=== PATIENT | female | born 1945 | race Caucasian/White ===

== ENCOUNTER → 2020-12-06 | Outpatient (CLI) | payer MEDICARE | END | disposition home or self-care (01) | LOC: LABWHC1 09:26 | PROVIDERS: ATTEND Orthopaedic Surgery | DX: M25.561 Pain in right knee (principal); T84.84XA Pain due to internal orthopedic prosthetic devices, implants and grafts, initial encounter; T84.53XA Infection and inflammatory reaction due to internal right knee prosthesis, initial encounter | CPT/HCPCS: 36415; 85652; 86140 ==

== ENCOUNTER 2024-01-23 11:29 | Inpatient (IN) | payer MEDICARE ==
[2024-01-23 12:11] LABS: Basophils % (A) 0 %; Eosinophils # (A) 0.1 k/uL (0-0.7); Eosinophils % (A) 1 %; HCT 41.7 % (34.0-46.0); HGB 13.3 gm/dL (11.4-16.0); Hypochromasia Slight; Lymphocytes # (A) 1.2 k/uL (1.0-4.8); Lymphocytes % (A) 12 %; MCH 28.2 pg (25.0-35.0); MCHC 31.9 g/dL (31.0-37.0); MCV 88.4 fL (80.0-100.0); Mean Platelet Volume 7.4; Monocytes # (A) 0.1 k/uL (0-1.0); Monocytes % (A) 1 %; Neutrophils % (A) 86 %; Platelet Count 277 k/uL (150-450); RBC 4.71 m/uL (3.80-5.40); RDW 14.4 % (11.5-15.5); WBC 10.5 k/uL (3.8-10.6)
--- NOTE | 2024-01-23 12:24 | ED ---
Fall HPI - General Chief Complaint: Fall Stated Complaint: Fall Time Seen by Provider: 01/23/24 11:34 Source: patient, EMS, RN notes reviewed Mode of arrival: EMS Limitations: no limitations - History of Present Illness Initial Comments: This is a 78-year-old female who presents to the emergency department for a fall. Patient was at [facility] to get a steroid injection with Dr. Mcdaniel. She was given Versed to help her relax prior to the steroid injection. The procedure was finished and she went to get up. States that her right knee gave out on her and she fell, landing on her right side. Currently complaining of pain over the right hip. She has been unable to ambulate since she fell. Denies hitting her head or any loss of consciousness. Not taking any blood thinners. MD Complaint: fall - Related Data Home Medications Medication Instructions Recorded Confirmed Atorvastatin [Lipitor] 20 mg PO HS 01/23/24 01/23/24 Calcium Carbonate [Calcium] 600 mg PO DAILY 01/23/24 01/23/24 Fosinopril Sodium [Monopril] 20 mg PO DAILY 01/23/24 01/23/24 Insulin Glargine,Hum.rec.anlog 25 units SQ HS 01/23/24 01/23/24 [Lantus Solostar Pen] Triamterene-Hctz 37.5-25Mg 1 cap PO DAILY 01/23/24 01/23/24 [Dyazide 37.5-25 Capsule] Verapamil HCl [Calan Sr] 240 mg PO BID 01/23/24 01/23/24 Allergies Allergy/AdvReac Type Severity Reaction Status Date / Time No Known Allergies Allergy Verified 01/23/24 13:48 Review of Systems ROS Statement: Those systems with pertinent positive or pertinent negative responses have been documented in the HPI. ROS Other: All systems not noted in ROS Statement are negative. Past Medical History Past Medical History: Diabetes Mellitus, Hypertension History of Any Multi-Drug Resistant Organisms: None Reported Additional Past Surgical History / Comment(s): right knee replacement, hysterectomoy Past Psychological History: No Psychological Hx Reported Smoking Status: Never smoker Past Alcohol Use History: None Reported Past Drug Use History: None Reported General Exam Limitations: no limitations General appearance: alert, in no apparent distress Head exam: Present: atraumatic, normocephalic, normal inspection Respiratory exam: Present: normal lung sounds bilaterally. Absent: respiratory distress, wheezes, rales, rhonchi, stridor Cardiovascular Exam: Present: regular rate, normal rhythm, normal heart sounds. Absent: systolic murmur, diastolic murmur, rubs, gallop, clicks Extremities exam: Present: other (Tenderness to palpation over the right hip. Shortening and external rotation. Range of motion limited by pain. 2+ DP and PT pulses) Neurological exam: Present: alert, oriented X3, CN II-XII intact Psychiatric exam: Present: normal affect, normal mood Skin exam: Present: warm, dry, intact, normal color. Absent: rash Course Vital Signs 01/23/24 01/23/24 01/23/24 11:34 12:35 14:00 Temperature 98.5 F 99.4 F Pulse Rate 77 64 93 Respiratory 21 17 17 Rate Blood Pressure 136/73 148/71 164/88 O2 Sat by Pulse 95 95 94 L Oximetry 01/23/24 01/23/24 14:11 15:33 Temperature Pulse Rate 81 94 Respiratory 18 16 Rate Blood Pressure 164/88 146/72 O2 Sat by Pulse 96 92 L Oximetry Medical Decision Making - Medical Decision Making This is a 78 year old female who presents to the emergency department for right hip pain after a fall. Was pt. sent in by a medical professional or institution? @ -No Did you speak to anyone other than the patient for history? @ -No Did you review nursing and triage notes? @ -Yes, and I agree, it is accurate with regards to the patient's symptoms. Were old charts reviewed? @ -No Differential Diagnosis? @ -Differential Musculoskeletal: Muscular strain, contusion, ligament sprain, fracture, arthritis, septic arthritis, bursitis, cellulitis, muscle spasm, nerve compression, DVT, arterial occlusion, herpes zoster, electrolyte abnormality, tumor.... This is not meant to be in all inclusive list EKG interpreted by me (3pts min.)? @ -EKG interpreted by me demonstrating the following: Sinus rhythm. Ventricular rate 73 bpm, CT interval 142 ms, QRS duration 91 ms, QTc 421 ms. X-rays interpreted by me (1pt min.)? @ -X-ray of the right hip and AP pelvis obtained. My interpretation identifies an intertrochanteric fracture. Chest x-ray obtained, my interpretation identifies no localized consolidations or infiltrates. CT interpreted by me (1pt min.)? @ -Not obtained U/S interpreted by me (1pt. min.)? @ -Not obtained What testing was considered but not performed? (CT, X-rays, U/S, labs)? Why? @ -None What meds were considered but not given? Why? @ -None Did you discuss the management of the patient with other professionals? @ -Yes, Juli Hull PA-C, with [facility], who accepts the patient for admission. Did you reconcile home meds? @ -Yes Was smoking cessation discussed for >3mins.? @ -No Was critical care preformed (if so, how long)? @ -No Were there social determinants of health that impacted care today? How? (Homelessness, low income, unemployed, alcoholism, drug addiction, trans portation, low edu. Level, literacy, decrease access to med. care, fci, rehab)? @ -No Was there de-escalation of care discussed even if they declined? (Discuss DNR or withdrawal of care, Hospice)? @ -No What co-morbidities impacted this encounter? (DM, HTN, Smoking, COPD, CAD, Cancer, CVA, Hep., AIDS, mental health diagnosis, sleep apnea, morbid obesity)? @ -DM, HTN Was patient admitted / discharged? @ -Admitted. X-ray of the right hip and AP pelvis demonstrates a right intertrochanteric fracture with varus deformity. We subsequently proceeded with preoperative workup including an EKG, lab work, and chest x-ray. Lab work demonstrates decreased renal function and signs of dehydration. However, we have no prior renal function for comparison. Ann catheter was placed as well due to required immobilization. Patient admitted to orthopedics for right intertrochanteric fracture. Consult placed for medicine for medical management and surgical clearance. Patient kept NPO after midnight for possible intervention tomorrow. Case discussed with ED attending, Dr. Matthews. Undiagnosed new problem with uncertain prognosis? @ -None Drug Therapy requiring intensive monitoring for toxicity (Heparin, Nitro, Insulin, Cardizem)? @ -None Were any procedures done? @ -None Diagnosis/symptom? @ -Fall, right intertrochanteric fracture Acute, or Chronic, or Acute on Chronic? @ -Acute Uncomplicated (without systemic symptoms) or Complicated (systemic symptoms)? @ -Uncomplicated Side effects of treatment? @ -None Exacerbation, Progression, or Severe Exacerbation] @ -Not applicable Poses a threat to life or bodily function? @ -Yes, this is preventing the patient from being able to ambulate. - Lab Data Result diagrams: 01/23/24 12:00 01/23/24 12:00 Lab Results 01/23/24 01/23/24 01/23/24 Range/Units 12:00 12:00 12:00 WBC 10.5 (3.8-10.6) k/uL RBC 4.71 (3.80-5.40) m/uL Hgb 13.3 (11.4-16.0) gm/dL Hct 41.7 (34.0-46.0) % MCV 88.4 (80.0-100.0) fL MCH 28.2 (25.0-35.0) pg MCHC 31.9 (31.0-37.0) g/dL RDW 14.4 (11.5-15.5) % Plt Count 277 (150-450) k/uL MPV 7.4 Neutrophils % 86 % Lymphocytes % 12 % Monocytes % 1 % Eosinophils % 1 % Basophils % 0 % Neutrophils # 9.0 H (1.3-7.7) k/uL Lymphocytes # 1.2 (1.0-4.8) k/uL Monocytes # 0.1 (0-1.0) k/uL Eosinophils # 0.1 (0-0.7) k/uL Basophils # 0.0 (0-0.2) k/uL Hypochromasia Slight PT 10.3 (10.0-12.5) sec INR 0.9 (<1.2) APTT 22.8 (22.0-30.0) sec Sodium 137 (137-145) mmol/L Potassium 4.9 (3.5-5.1) mmol/L Chloride 103 (98-107) mmol/L Carbon Dioxide 27 (22-30) mmol/L Anion Gap 7 mmol/L BUN 21 H (7-17) mg/dL Creatinine 1.52 H (0.52-1.04) mg/dL Est GFR (CKD-EPI)AfAm 38 (>60 ml/min/1.73 sqM) Est GFR (CKD-EPI)NonAf 33 (>60 ml/min/1.73 sqM) Glucose 161 H (74-99) mg/dL POC Glucose (mg/dL) (70-110) mg/dL POC Glu Intake Manager ID Calcium 9.8 (8.4-10.2) mg/dL Total Bilirubin 0.7 (0.2-1.3) mg/dL AST 27 (14-36) U/L ALT 24 (4-34) U/L Alkaline Phosphatase 67 (38-126) U/L Total Protein 6.7 (6.3-8.2) g/dL Albumin 4.1 (3.5-5.0) g/dL 01/23/24 Range/Units 13:14 WBC (3.8-10.6) k/uL RBC (3.80-5.40) m/uL Hgb (11.4-16.0) gm/dL Hct (34.0-46.0) % MCV (80.0-100.0) fL MCH (25.0-35.0) pg MCHC (31.0-37.0) g/dL RDW (11.5-15.5) % Plt Count (150-450) k/uL MPV Neutrophils % % Lymphocytes % % Monocytes % % Eosinophils % % Basophils % % Neutrophils # (1.3-7.7) k/uL Lymphocytes # (1.0-4.8) k/uL Monocytes # (0-1.0) k/uL Eosinophils # (0-0.7) k/uL Basophils # (0-0.2) k/uL Hypochromasia PT (10.0-12.5) sec INR (<1.2) APTT (22.0-30.0) sec Sodium (137-145) mmol/L Potassium (3.5-5.1) mmol/L Chloride (98-107) mmol/L Carbon Dioxide (22-30) mmol/L Anion Gap mmol/L BUN (7-17) mg/dL Creatinine (0.52-1.04) mg/dL Est GFR (CKD-EPI)AfAm (>60 ml/min/1.73 sqM) Est GFR (CKD-EPI)NonAf (>60 ml/min/1.73 sqM) Glucose (74-99) mg/dL POC Glucose (mg/dL) 157 H (70-110) mg/dL POC Glu Intake Manager ID Jay Baig Calcium (8.4-10.2) mg/dL Total Bilirubin (0.2-1.3) mg/dL AST (14-36) U/L ALT (4-34) U/L Alkaline Phosphatase (38-126) U/L Total Protein (6.3-8.2) g/dL Albumin (3.5-5.0) g/dL - Radiology Data Radiology results: report reviewed, image reviewed Disposition Clinical Impression: Fall, Fracture, intertrochanteric, right femur Disposition: ADMITTED IP TO THIS HOSP
[2024-01-23 12:28] LABS: INR 0.9 (<1.2); Partial Thromboplastin Time 22.8 sec (22.0-30.0); Prothrombin Time 10.3 sec (10.0-12.5)
[2024-01-23 12:31] LABS: ALT 24 U/L (4-34); AST 27 U/L (14-36); African American GFR (CKD) 38 (>60 ml/min/1.73 sqM); Albumin 4.1 g/dL (3.5-5.0); Alkaline Phosphatase 67 U/L (38-126); Anion Gap 7 mmol/L; Blood Urea Nitrogen 21 mg/dL (7-17); Calcium 9.8 mg/dL (8.4-10.2); Carbon Dioxide 27 mmol/L (22-30); Chloride 103 mmol/L (98-107); Glucose 161 mg/dL (74-99); Non-African American GFR(CKD) 33 (>60 ml/min/1.73 sqM); Potassium 4.9 mmol/L (3.5-5.1); Sodium 137 mmol/L (137-145); Total Bilirubin 0.7 mg/dL (0.2-1.3); Total Protein 6.7 g/dL (6.3-8.2)
[2024-01-23] MEDS: SODIUM CHLORIDE 0.9% 1,000 ML IV STA (12:45)
[2024-01-23] MEDS: HYDROmorphone 0.5 MG/0.5 ML SYRINGE IVP STA (12:45)
[2024-01-23] MEDS: HYDROmorphone 1 MG/ML 1 ML SYRINGE IVP STA (13:10)
[2024-01-23 13:15] LABS: Glucose,Whole Blood 157 mg/dL (70-110)
--- NOTE | 2024-01-23 13:42 | XR ---
EXAMINATION TYPE: XR chest 1V DATE OF EXAM: 01/23/2024 1:13 PM CLINICAL INDICATION: Female, 78 years old with history of Fall; [facility] COMPARISON: None TECHNIQUE: XR chest 1V Frontal view of the chest. FINDINGS: Lungs/Pleura: There is no evidence of pleural effusion, focal consolidation, or pneumothorax. Pulmonary vascularity: Unremarkable. Heart/mediastinum: Cardiomediastinal silhouette is unremarkable. Musculoskeletal: No acute osseous pathology. IMPRESSION: No acute cardiopulmonary disease/process. [facility], , 01/23/2024 1:40 PM
--- NOTE | 2024-01-23 13:49 | XR ---
EXAMINATION TYPE: XR Hip RT and AP Pelvis DATE OF EXAM: 01/23/2024 1:13 PM CLINICAL INDICATION: Female, 78 years old with history of Fall; [facility] COMPARISON: None. TECHNIQUE: XR Hip RT and AP Pelvis; hip was examined in the frontal and lateral projections and a AP pelvis. FINDINGS/IMPRESSION: Proximal right femur fracture with varus deformity. [facility], , 01/23/2024 1:47 PM
[2024-01-23] MEDS ORDERED: ACETAMINOPHEN TAB 325 MG TAB PO PRN (14:48)
[2024-01-23] MEDS ORDERED: HYDROmorphone 0.5 MG/0.5 ML SYRINGE IVP PRN (14:48)
[2024-01-23] MEDS ORDERED: ONDANSETRON 4 MG/2 ML VIAL IVP PRN (14:48)
[2024-01-23] MEDS ORDERED: NALOXONE 0.4 MG/ML 1 ML VIAL IV PRN (14:48)
[2024-01-23] MEDS: HYDROmorphone 1 MG/ML 1 ML SYRINGE IVP PRN (16:25)
--- NOTE | 2024-01-23 17:10 | CT ---
EXAMINATION TYPE: CT hip RT wo con DATE OF EXAM: 01/23/2024 COMPARISON: Plain film 01/23/2024 HISTORY: Fractured right hip CT DLP: 634.7 mGycm Automated exposure control for dose reduction was used. Contrast: None Technique: Axial images 3 mm thick sections. Reconstructed images in the coronal and sagittal plane. FINDINGS: There is an intertrochanteric fracture of the right hip. Subtle nondisplaced avulsion of the lesser t rochanter is present. There is some rotation of the distal fracture fragment in relation to the proxi mal fracture fragment. Femoral head articulates with the acetabulum. Joint space is narrowed. IMPRESSION: 1. INTERTROCHANTERIC FRACTURE RIGHT HIP. [facility], Workstation: [facility], 01/23/2024 5:07 PM
[2024-01-23 20:52] LABS: Glucose,Whole Blood 283 mg/dL (70-110)
[2024-01-23] MEDS: ATORVASTATIN 20 MG TAB PO SCH (21:23)
[2024-01-23] MEDS: VERAPAMIL SR 240 MG TABLET.ER PO SCH (21:23)
[2024-01-23] MEDS: INSULIN DETEMIR (LEVEMIR) 100 UNIT/ML SYR SQ SCH (21:23)
[2024-01-24 06:05] LABS: Glucose,Whole Blood 229 mg/dL (70-110)
[2024-01-24] MEDS: TRIAMTERENE-HCTZ 37.5-25MG 1 EACH CAP PO SCH (07:56)
[2024-01-24] MEDS: PANTOPRAZOLE 40 MG/10 ML VIAL IV SCH (07:56)
[2024-01-24] MEDS: CALCIUM CARBONATE 500 MG CHEWABLE PO SCH (07:56)
[2024-01-24] MEDS: lisinopriL 20 MG TAB PO SCH (07:56)
--- NOTE | 2024-01-24 09:07 | P.HPOR ---
History of Present Illness H&P Date: 01/24/24 This is a 78-year-old female who is admitted for a right hip fracture. Patient states that she has had issues with her right leg giving out for quite a while and states that she normally uses a cane or furniture in her house to stabilize her as she walks. Patient states that she has been having issues with her back and received a steroid injection for this on 01/23/2024. Patient states that yesterday her right leg gave out and she fell. Patient denies any loss of consciousness or head injury. Patient states that she lives at home with her . Patient's past medical history significant for diabetes mellitus and hypertension. Patient reports a history of a right knee replacement. Patient denies any fever/chills, chest pain, shortness breath, abdominal pain, numbness or tingling. Review of Systems See HPI. Past Medical History Past Medical History: Diabetes Mellitus, Hypertension History of Any Multi-Drug Resistant Organisms: None Reported Additional Past Surgical History / Comment(s): right knee replacement, hysterectomoy Past Anesthesia/Blood Transfusion Reactions: No Reported Reaction Past Psychological History: No Psychological Hx Reported Smoking Status: Never smoker Past Alcohol Use History: None Reported Past Drug Use History: None Reported Medications and Allergies Home Medications Medication Instructions Recorded Confirmed Type Atorvastatin [Lipitor] 20 mg PO HS 01/23/24 01/23/24 History Calcium Carbonate [Calcium] 600 mg PO DAILY 01/23/24 01/23/24 History Fosinopril Sodium [Monopril] 20 mg PO DAILY 01/23/24 01/23/24 History Insulin Glargine,Hum.rec.anlog 25 units SQ HS 01/23/24 01/23/24 History [Lantus Solostar Pen] Triamterene-Hctz 37.5-25Mg 1 cap PO DAILY 01/23/24 01/23/24 History [Dyazide 37.5-25 Capsule] Verapamil HCl [Calan Sr] 240 mg PO BID 01/23/24 01/23/24 History Allergies Allergy/AdvReac Type Severity Reaction Status Date / Time No Known Allergies Allergy Verified 01/23/24 13:48 Physical Examination On exam patient is resting comfortably in bed in no acute distress. Patient is alert and oriented 3. Right lower extremity: Shortened and externally rotated. Skin is intact. There is mild swelling present. The right lower extremity is warm and well-perfused. Calf is soft and nontender to palpation. Sensation intact. Patient has full range of motion of the right foot and ankle. Neurovascular status and circulatory status are intact. There is a small abrasion to the right forearm. Otherwise exams of bilateral upper extremities and left lower extremity are within normal limits. Head is normocephalic and atraumatic. Results X-rays of the right hip and pelvis reveal an intertrochanteric fracture of the right femur. A CT report of the right hip shows: 1. Intertrochanteric fracture right hip. - Labs Labs: Abnormal Lab Results - Last 24 Hours (Table) 01/23/24 01/23/24 01/23/24 Range/Units 12:00 12:00 13:14 Neutrophils # 9.0 H (1.3-7.7) k/uL BUN 21 H (7-17) mg/dL Creatinine 1.52 H (0.52-1.04) mg/dL Glucose 161 H (74-99) mg/dL POC Glucose (mg/dL) 157 H (70-110) mg/dL 01/23/24 01/24/24 Range/Units 20:48 06:04 Neutrophils # (1.3-7.7) k/uL BUN (7-17) mg/dL Creatinine (0.52-1.04) mg/dL Glucose (74-99) mg/dL POC Glucose (mg/dL) 283 H 229 H (70-110) mg/dL H & H 01/23/24 Range/Units 12:00 Hgb 13.3 (11.4-16.0) gm/dL Hct 41.7 (34.0-46.0) % Coagulation 01/23/24 Range/Units 12:00 INR 0.9 (<1.2) Result Diagrams: 01/23/24 12:00 01/23/24 12:00 Assessment and Plan (1) Fall Current Visit: Yes Status: Acute Code(s): W19.XXXA - UNSPECIFIED FALL, INITIAL ENCOUNTER SNOMED Code(s): 2447111 (2) Fracture, intertrochanteric, right femur Current Visit: Yes Status: Acute Code(s): S72.141A - DISPLACED INTERTROCHANTERIC FRACTURE OF RIGHT FEMUR, INIT SNOMED Code(s): 827558486 Plan: 1. NPO after midnight. 2. Continue bedrest and pain control. 3. Planning for closed reduction and intramedullary nailing of the right hip on 01/25/[address] Juventino Estrella pending medical clearance and patient consent.
[2024-01-24] MEDS ORDERED: LIDOCAINE 1% (10MG/ML) FOR IV START INTRADERMA PRN (09:25)
--- NOTE | 2024-01-24 14:32 | P.CONS ---
History of Present Illness - Reason for Consult Consult date: 01/24/24 Medical management - History of Present Illness History of present illness; patient is a 78-year-old lady with past medical history significant for hypertension, diabetes mellitus who presented to the ER because of a fall. Patient has been having issues with her right hip for a while. Patient has been having back pain and for which she received a steroid injection yesterday. Patient stated that her right leg gave out and she fell on her right side. There was no complaint of loss of consciousness. Denied any trauma to the head. Patient did not complain of any lightheadedness or dizziness prior to the fall. Because of this patient was brought to the ER Initial lab work done in the ER showed WBC 10.5, hemoglobin 13.3, platelet count 277, sodium 137 potassium 4.9, BUN 21, creatinine 1.52, glucose 167, calcium 9.8, bilirubin 0.7, AST 27, ALT 24 EKG done in the ER showed heart rate of 73, no ST segment elevation or depression seen, no T-wave inversions seen. Chest x-ray done in the ER showed no acute cardiopulmonary process X-ray right hip and pelvis showed proximal right femur fracture with varus deformity CT hip done showed intertrochanteric fracture right hip Patient admitted to internal medicine service REVIEW OF SYSTEMS: CONSTITUTIONAL: No fever, no malaise, no fatigue. HEENT: No recent visual problems or hearing problems. Denied any sore throat. CARDIOVASCULAR: No chest pain, orthopnea, PND, no palpitations, no syncope. PULMONARY: No shortness of breath, no cough, no hemoptysis. GASTROINTESTINAL: No diarrhea, no nausea, no vomiting, no abdominal pain. NEUROLOGICAL: No headaches, no weakness, no numbness. HEMATOLOGICAL: Denies any bleeding or petechiae. GENITOURINARY: Denies any burning micturition, frequency, or urgency. MUSCULOSKELETAL/RHEUMATOLOGICAL: As mentioned above ENDOCRINE: Denies any polyuria or polydipsia. The rest of the 14-point review of systems is negative. PHYSICAL EXAMINATION: GENERAL: The patient is alert and oriented x3, not in any acute distress. Well developed, well nourished. HEENT: Pupils are round and equally reacting to light. EOMI. No scleral icterus. No conjunctival pallor. Normocephalic, atraumatic. No pharyngeal erythema. No thyromegaly. CARDIOVASCULAR: S1 and S2 present. No murmurs, rubs, or gallops. PULMONARY: Chest is clear to auscultation, no wheezing or crackles. ABDOMEN: Soft, nontender, nondistended, normoactive bowel sounds. No palpable organomegaly. MUSCULOSKELETAL: No joint swelling or deformity. EXTREMITIES: No cyanosis, clubbing, or pedal edema. NEUROLOGICAL: Gross neurological examination did not reveal any focal deficits. SKIN: No rashes. Assessment and plan Fall Right hip fracture Hypertension Diabetes mellitus Monitor vital signs Monitor CBC Monitor CMP Continue pain management per orthopedics Continue DVT prophylaxis per orthopedics Resume home meds PT and OT consulted Patient is medically cleared for orthopedic surgical intervention with moderate risk of postoperative complication Labs and medication were reviewed.. Continue same treatment. Continue with symptomatic treatment. Resume home medication. Monitor labs and vitals. DVT and GI prophylaxis. Further recommendations as per clinical course of the patient Dictation was produced using [employer] dictation software. please excuse any grammatical, word or spelling errors. Past Medical History Past Medical History: Diabetes Mellitus, Hypertension History of Any Multi-Drug Resistant Organisms: None Reported Additional Past Surgical History / Comment(s): right knee replacement, hysterectomoy Past Anesthesia/Blood Transfusion Reactions: No Reported Reaction Past Psychological History: No Psychological Hx Reported Smoking Status: Never smoker Past Alcohol Use History: None Reported Past Drug Use History: None Reported Medications and Allergies Home Medications Medication Instructions Recorded Confirmed Type Atorvastatin [Lipitor] 20 mg PO HS 01/23/24 01/23/24 History Calcium Carbonate [Calcium] 600 mg PO DAILY 01/23/24 01/23/24 History Fosinopril Sodium [Monopril] 20 mg PO DAILY 01/23/24 01/23/24 History Insulin Glargine,Hum.rec.anlog 25 units SQ HS 01/23/24 01/23/24 History [Lantus Solostar Pen] Triamterene-Hctz 37.5-25Mg 1 cap PO DAILY 01/23/24 01/23/24 History [Dyazide 37.5-25 Capsule] Verapamil HCl [Calan Sr] 240 mg PO BID 01/23/24 01/23/24 History Allergies Allergy/AdvReac Type Severity Reaction Status Date / Time No Known Allergies Allergy Verified 01/23/24 13:48 Physical Exam Vitals: Vital Signs Temp Pulse Pulse Resp BP BP Pulse Ox 01/24/24 01:42 98.6 F 94 17 131/72 93 L 01/23/24 20:50 98.7 F 100 17 157/78 92 L 01/23/24 19:39 98.3 F 100 17 148/65 94 L 01/23/24 17:00 79 16 140/90 94 L 01/23/24 15:33 94 16 146/72 92 L 01/23/24 14:11 81 18 164/88 96 01/23/24 14:00 93 17 164/88 94 L 01/23/24 12:35 99.4 F 64 17 148/71 95 01/23/24 11:34 98.5 F 77 21 136/73 95 Intake and Output 01/23/24 01/24/24 01/24/24 22:59 06:59 14:59 Output Total 925 Balance -925 Output: Urine 925 Other: Voiding Method Indwelling Catheter Weight 86.183 kg Results CBC & Chem 7: 01/23/24 12:00 01/23/24 12:00 Labs: Abnormal Lab Results - Last 24 Hours (Table) 01/23/24 01/23/24 01/23/24 Range/Units 12:00 12:00 13:14 Neutrophils # 9.0 H (1.3-7.7) k/uL BUN 21 H (7-17) mg/dL Creatinine 1.52 H (0.52-1.04) mg/dL Glucose 161 H (74-99) mg/dL POC Glucose (mg/dL) 157 H (70-110) mg/dL 01/23/24 01/24/24 Range/Units 20:48 06:04 Neutrophils # (1.3-7.7) k/uL BUN (7-17) mg/dL Creatinine (0.52-1.04) mg/dL Glucose (74-99) mg/dL POC Glucose (mg/dL) 283 H 229 H (70-110) mg/dL
[2024-01-24 17:01] LABS: Glucose,Whole Blood 197 mg/dL (70-110)
[2024-01-24] MEDS: LACTATED RINGERS 1,000 ML IV SCH (19:25)
[2024-01-24 21:54] LABS: Glucose,Whole Blood 170 mg/dL (70-110)
[2024-01-25 05:56] LABS: Glucose,Whole Blood 144 mg/dL (70-110)
[2024-01-25] MEDS ORDERED: ONDANSETRON 4 MG/2 ML VIAL IVP PRN (07:00)
[2024-01-25] MEDS ORDERED: PHENYLEPHRINE 10 MG/ML VIAL ONE (08:03)
[2024-01-25] MEDS ORDERED: fentaNYL (PF) 50 MCG/ML 2 ML AMP ONE (08:03)
[2024-01-25] MEDS ORDERED: TRANEXAMIC 1,000 MG/100ML-NACL PREMIX BAG ONE (08:03)
[2024-01-25] MEDS ORDERED: ROCURONIUM 10 MG/ML (5 ML VIAL) IV ONE (08:03)
[2024-01-25] MEDS ORDERED: HYDROmorphone (PF) 1 MG/ML ONE (08:03)
[2024-01-25] MEDS ORDERED: GLYCOPYRROLATE 0.2 MG/ML 2 ML VIAL ONE (08:03)
[2024-01-25] MEDS ORDERED: NEOSTIGMINE 1 MG/ML 10 ML VIAL ONE (08:03)
[2024-01-25] MEDS ORDERED: DEXAMETHASONE SOD PHOSPHATE 4 MG/ML 1 ML VIAL ONE (08:03)
[2024-01-25] MEDS ORDERED: ONDANSETRON 4 MG/2 ML VIAL ONE (08:03)
[2024-01-25] MEDS ORDERED: SUCCINYLCHOLINE CHLORIDE 200 MG/10 ML VIAL IV ONE (08:03)
[2024-01-25] MEDS ORDERED: LIDOCAINE 1% INJ 10MG/ML (20 ML MDV) ONE (08:03)
[2024-01-25] MEDS ORDERED: PROPOFOL 10 MG/ML 20 ML VIAL IV ONE (08:03)
[2024-01-25] MEDS: IV FLUID CONTINUATION 1,000 ML IV ONE (08:08)
[2024-01-25] MEDS: SODIUM CHLORIDE 0.9% 100 ML with ceFAZolin 2,000 MG IV ONE (08:08)
[2024-01-25] MEDS: ceFAZolin 1,000 MG in SODIUM CHLORIDE 0.9% 1,000 ML IRRIGATION ONE (08:08)
--- NOTE | 2024-01-25 09:08 | P.OP ---
Date of Procedure: 01/25/24 Preoperative Diagnosis: Displaced intertrochanteric fracture right hip Postoperative Diagnosis: Displaced intertrochanteric fracture right hip Procedure(s) Performed: Close reduction and intramedullary nailing right hip Implants: [employer] TriGen Intertan nail 125, 11.5 mm x 18 cm. [employer] Intertan integrated-interlocking lag screw, 100 mm lag screw, 95 mm compression screw. [employer] L-P screw, 5.0 mm x 37.5 mm. Anesthesia: GETA Surgeon: Juventino Estrella Sql Server Architect #1: Juli Hull Estimated Blood Loss (ml): 150 Pathology: none sent Condition: stable Disposition: PACU Indications for Procedure: This is a 78-year-old female sustained a ground-level fall on Friday. X-rays demonstrate a displaced intertrochanteric fracture of her right hip. After discussing the surgical and nonsurgical treatment options with her at length, I recommended a close reduction and intramedullary nailing of the right hip. Informed consent was obtained. Operative Findings: The operative findings are consistent with a displaced intertrochanteric fracture of the right hip Description of Procedure: The patient was seen in the preoperative area, consent was reviewed, and the operative site was marked with a skin marker. The surgical procedure was discussed at length with both the patient and the family at the bedside. All questions were answered to the best of my ability. The patient was brought to the operating room and placed on the fracture table. Anesthesia was administered by the anesthesia department. 2 g of Ancef were administered intravenously. The patient was placed supine on the fracture table with the fractured extremity in traction boot. The other extremity was placed in a well leg dejesus and the bony prominences were well padded. A universal timeout was then performed which confirmed the patient's name, surgical site, ALLERGIES, and consent. Fracture reduction was performed with a traction and abduction maneuver which was confirmed with fluoroscopy, both AP and lateral views.. After reduction was performed, the extremity was then prepped with ChloraPrep solution and draped in the usual sterile fashion. Utilizing fluoroscopy to identify the tip of the greater trochanter, a 3 cm longitudinal incision was made just proximal to the greater trochanter. Incision was carried through the fascia to the tip of the greater trochanter. Utilizing a curved awl, the entry point was created at the tip of the greater trochanter and centralized in the AP and lateral planes. These locations were confirmed by fluoroscopy. A guidewire was then inserted down the medullary canal. Sequentially reaming of the femur was performed to 13 mm distally and 17 mm proximally with the channel reamer. After reaming, appropriate size nail was inserted over the guidewire. The nail was inserted to the appropriate depth and the guidewire was removed. Placement of the ira was confirmed with both AP and lateral fluoroscopic views. The lag screw drill sleeve was placed in the jig and a small skin incision was made on the lateral aspect of the leg and the lag screw drill sleeve was locked into the guide. The 3.2 mm guide pin sleeve was inserted through the lag screw drill sleeve down to bone. A 3.2 mm distally threaded guidewire was inserted through the guide pin sleeve. The guidewire was inserted in the desired position in the femoral head, both anterior and posterior. The lag screw length cage was inserted over the guidepin to the back of the lag screw drill sleeve. Lag screw length was then measured from the cage. Next, the 7.0 mm compression screw starter drill was inserted in the lag screw drill sleeve beneath the guidepin. The compression screw starter drill was advanced under power until it abutted the back and of the lag screw drill sleeve. The 7.0 mm compression screw drill was inserted through the lag screw drill sleeve into the hole created by the compression screw starter drill. This was advanced under fluoroscopy to a depth 5 mm less and the measurement taken for the guidepin. The compression screw drill was removed and the antirotation bar was inserted into the same hole. The 3.2 mm guide pin sleeve was then removed from the drill guide. The lag screw drill was then inserted to a depth that was measured by the lag screw gauge. This was done under fluoroscopy. The lag screw was inserted over the guidewire to the appropriate depth using fluoroscopy. Traction was then released. The antirotation bar was then removed and the compression screw was advanced through the lag screw drill sleeve beneath the lag screw. This was advanced to the appropriate compression was achieved. The proximal drill guide was then removed and the distal drill guide was then inserted in the jig. Skin incision was made down to bone and the distal drill guide was then placed. Distal hole was then drilled with a 4.0 mm drill and measured to the appropriate depth. Distal screw was then placed. The entire assembly was then removed and final fluoroscopic x-rays were obtained. The wounds were then irrigated copiously with saline solution. Fascia was closed with 0-Vicryl. Subcutaneous tissues were closed with 2-0 Vicryl and the skin was closed with rei. Sterile dressings were applied. The patient was transported to the recovery room in stable condition. The speech and language assistant WHITNEY Sánchez was required due the complexity of surgery the need for skilled hand frame surgical elastic knitter for positioning draping retraction and fracture reduction.
--- NOTE | 2024-01-25 09:27 | XR ---
Fluoroscopy INDICATION: Pain FINDINGS: Fluoroscopy time: 31 seconds. Total dose area product (DAP) in uGy*m?, mGy*cm? (or similar): 1.811 Images obtained: 3. Right hip pin placement for intertrochanteric fracture repair. IMPRESSION: 1. Documentation of fluoroscopy. [facility] Workstation: [facility], 01/25/2024 9:24 AM
[2024-01-25] MEDS ORDERED: NALOXONE 0.4 MG/ML 1 ML VIAL IV PRN (09:29)
[2024-01-25] MEDS ORDERED: HYDROmorphone 0.5 MG/0.5 ML SYRINGE IVP PRN ×2 (09:29)
[2024-01-25] MEDS ORDERED: MAGNESIUM HYDROXIDE 2,400 MG/30 ML CUP PO PRN (09:29)
--- NOTE | 2024-01-25 09:29 | FL ---
Fluoroscopy INDICATION: Pain FINDINGS: Fluoroscopy time: 31 seconds. Total dose area product (DAP) in uGy*m?, mGy*cm? (or similar): 1.811 Images obtained: 0. IMPRESSION: 1. Documentation of fluoroscopy. [facility], Workstation: [facility], 01/25/2024 9:26 AM
[2024-01-25] MEDS: HYDROmorphone 0.5 MG/0.5 ML SYRINGE IVP PRN (09:43)
[2024-01-25 09:45] LABS: Glucose,Whole Blood 112 mg/dL (70-110)
[2024-01-25] MEDS: ONDANSETRON 4 MG/2 ML VIAL IVP ONE (10:29)
[2024-01-25] MEDS: DEXAMETHASONE SOD PHOSPHATE 4 MG/ML 1 ML VIAL IV ONE (10:29)
--- NOTE | 2024-01-25 11:12 | XR ---
EXAMINATION TYPE: XR Hip Limited RT DATE OF EXAM: 01/25/2024 COMPARISON: None HISTORY: Post hip surgery TECHNIQUE: AP right hip FINDINGS: Hip pin is present in the femoral head. Intertrochanteric fracture fixation is informed. Me dullary ira is present. Postsurgical soft tissue changes are present. No new fractures are evident. IMPRESSION: 1. No new fracture post right open reduction internal fixation. [facility], Workstation: [facility], 01/25/2024 11:09 AM
[2024-01-25 11:47] LABS: Glucose,Whole Blood 166 mg/dL (70-110)
--- NOTE | 2024-01-25 14:02 | P.PN ---
Subjective Progress Note Date: 01/25/24 patient is a 78-year-old lady with past medical history significant for hypertension, diabetes mellitus who presented to the ER because of a fall. Patient has been having issues with her right hip for a while. Patient has been having back pain and for which she received a steroid injection yesterday. Patient stated that her right leg gave out and she fell on her right side. There was no complaint of loss of consciousness. Denied any trauma to the head. Patient did not complain of any lightheadedness or dizziness prior to the fall. Because of this patient was brought to the ER Initial lab work done in the ER showed WBC 10.5, hemoglobin 13.3, platelet count 277, sodium 137 potassium 4.9, BUN 21, creatinine 1.52, glucose 167, calcium 9.8, bilirubin 0.7, AST 27, ALT 24 EKG done in the ER showed heart rate of 73, no ST segment elevation or depression seen, no T-wave inversions seen. Chest x-ray done in the ER showed no acute cardiopulmonary process X-ray right hip and pelvis showed proximal right femur fracture with varus deformity CT hip done showed intertrochanteric fracture right hip Patient admitted to internal medicine service 01/24. Patient seen and examined. N.p.o. going for surgery today REVIEW OF SYSTEMS: CONSTITUTIONAL: No fever, no malaise,. CARDIOVASCULAR: No chest pain, no palpitations, no syncope. PULMONARY: No shortness of breath, no cough, GASTROINTESTINAL: No diarrhea, no nausea, no vomiting, no abdominal pain. NEUROLOGICAL: No headaches, no weakness, PHYSICAL EXAMINATION: GENERAL: The patient is alert and oriented x3, not in any acute distress. Well developed, well nourished. HEENT: Pupils are round and equally reacting to light. EOMI. No scleral icterus. No conjunctival pallor. Normocephalic, atraumatic. No pharyngeal erythema. No thyromegaly. CARDIOVASCULAR: S1 and S2 present. No murmurs, rubs, or gallops. PULMONARY: Chest is clear to auscultation, no wheezing or crackles. ABDOMEN: Soft, nontender, nondistended, normoactive bowel sounds. No palpable organomegaly. MUSCULOSKELETAL: No joint swelling or deformity. EXTREMITIES: No cyanosis, clubbing, or pedal edema. NEUROLOGICAL: Gross neurological examination did not reveal any focal deficits. SKIN: No rashes. Assessment and plan Fall Right hip fracture Hypertension Diabetes mellitus Monitor vital signs Monitor CBC Monitor CMP Continue pain management per orthopedics Continue DVT prophylaxis per orthopedics Currently n.p.o., going for surgery today Labs and medication were reviewed.. Continue same treatment. Continue with symptomatic treatment. Resume home medication. Monitor labs and vitals. DVT and GI prophylaxis. Further recommendations as per clinical course of the patient Dictation was produced using [employer] dictation software. please excuse any gramma tical, word or spelling errors. Objective - Vital Signs Vital signs: Vital Signs Temp 97.6 F 01/25/24 10:51 Pulse 99 01/25/24 10:51 Resp 17 01/25/24 10:51 BP 155/77 01/25/24 10:51 Pulse Ox 96 01/25/24 10:51 FiO2 Intake & Output 01/24/24 01/25/24 01/25/24 18:59 06:59 18:59 Intake Total 701 Output Total 500 450 425 Balance -500 -450 276 Intake: IV 701 Output: Urine 500 450 275 Estimated Blood Loss 150 Other: Voiding Method Indwelling Catheter Indwelling Catheter Indwelling Catheter - Labs CBC & Chem 7: 01/23/24 12:00 01/23/24 12:00 Labs: Abnormal Lab Results - Last 24 Hours (Table) 01/24/24 01/24/24 01/25/24 Range/Units 17:00 21:52 05:54 POC Glucose (mg/dL) 197 H 170 H 144 H (70-110) mg/dL 01/25/24 Range/Units 09:34 POC Glucose (mg/dL) 112 H (70-110) mg/dL
[2024-01-25 16:45] LABS: Glucose,Whole Blood 206 mg/dL (70-110)
[2024-01-25 21:10] LABS: Glucose,Whole Blood 245 mg/dL (70-110)
[2024-01-25] MEDS: HYDROcodone/APAP 7.5-325MG 1 EACH TAB PO PRN (21:49)
[2024-01-25] MEDS: SENNOSIDES-DOCUSATE SODIUM 1 EACH TAB PO SCH (21:51)
[2024-01-26] MEDS: HYDROmorphone 0.5 MG/0.5 ML SYRINGE IVP PRN (01:32)
[2024-01-26 05:46] LABS: Glucose,Whole Blood 148 mg/dL (70-110)
[2024-01-26] MEDS: SODIUM CHLORIDE 0.9% 1,000 ML IV SCH (05:50)
[2024-01-26] MEDS: HYDROcodone/APAP 7.5-325MG 1 EACH TAB PO PRN (05:52)
[2024-01-26 08:46] LABS: Basophils # (A) 0 X 10*3/uL (0.00-0.10); Basophils % (A) 0 %; Eosinophils # (A) 0 X 10*3/uL (0.04-0.35); Eosinophils % (A) 0 %; HCT 37.6 % (37.2-46.3); HGB 11.6 g/dL (12.0-15.0); Lymphocytes # (A) 1.15 X 10*3/uL (0.90-5.00); Lymphocytes % (A) 11.6 %; MCH 27.2 pg (27.0-32.0); MCHC 30.9 g/dL (32.0-37.0); MCV 88.1 FL (80.0-97.0); Mean Platelet Volume 10.7 FL (9.5-12.2); Monocytes # (A) 0.77 X 10*3/uL (0.20-1.00); Monocytes % (A) 7.8 %; NRBC Per 100 WBC 0 X 10*3/uL (0.00-0.01); Neutrophils # (A) 7.94 X 10*3/uL (1.80-7.70); Neutrophils % (A) 80.1 %; Platelet Count 234 X 10*3/uL (140-440); RBC 4.27 X 10*6/uL (4.10-5.20); RDW 14.8 % (11.5-14.5); WBC 9.91 X 10*3/uL (4.50-10.00)
[2024-01-26] MEDS: APIXABAN 2.5 MG TABLET PO SCH (09:52)
--- NOTE | 2024-01-26 11:14 | P.PN ---
Subjective Progress Note Date: 01/26/24 This is a 78-year-old female who is status post closed reduction and intramedullary nailing right hip. This is postoperative day #1 and patient is seen and evaluated at bedside today. Patient states that her pain is well- controlled and she was able to transfer to a chair with physical therapy today. Patient denies any new complaints today. Objective - Vital Signs Vital signs: Vital Signs Temp 98.8 F 01/26/24 07:17 Pulse 90 01/26/24 09:51 Resp 17 01/26/24 07:17 BP 151/72 01/26/24 09:51 Pulse Ox 91 L 01/26/24 07:17 FiO2 Intake & Output 01/25/24 01/26/24 01/26/24 18:59 06:59 18:59 Intake Total 701 Output Total 1025 1700 Balance -324 -1700 Intake: IV 701 Output: Urine 875 1700 Estimated Blood Loss 150 Other: Voiding Method Indwelling Catheter Indwelling Catheter Indwelling Catheter - Exam Vital signs are stable. Patient is in no acute distress and is alert and oriented 3. Calf is soft and nontender to palpation. Dressings are clean, dry, and intact. Patient has full foot and ankle motion without pain or difficulty. Sensation intact. Neurovascular status and circulatory status are intact. - Labs CBC & Chem 7: 01/26/24 02:34 01/23/24 12:00 Labs: Abnormal Lab Results - Last 24 Hours (Table) 01/25/24 01/25/24 01/25/24 Range/Units 11:46 16:44 21:09 Hgb (12.0-15.0) g/dL MCHC (32.0-37.0) g/dL RDW (11.5-14.5) % Immature Gran # (0.00-0.04) X 10*3/uL Neutrophils # (1.80-7.70) X 10*3/uL Eosinophils # (0.04-0.35) X 10*3/uL POC Glucose (mg/dL) 166 H 206 H 245 H (70-110) mg/dL 01/26/24 01/26/24 Range/Units 02:34 05:44 Hgb 11.6 L (12.0-15.0) g/dL MCHC 30.9 L (32.0-37.0) g/dL RDW 14.8 H (11.5-14.5) % Immature Gran # 0.05 H (0.00-0.04) X 10*3/uL Neutrophils # 7.94 H (1.80-7.70) X 10*3/uL Eosinophils # 0 L (0.04-0.35) X 10*3/uL POC Glucose (mg/dL) 148 H (70-110) mg/dL Assessment and Plan Assessment: Status post closed reduction and intramedullary nailing of the right femur. (1) Fall Current Visit: Yes Status: Acute Code(s): W19.XXXA - UNSPECIFIED FALL, INITIAL ENCOUNTER SNOMED Code(s): 1165005 (2) Fracture, intertrochanteric, right femur Current Visit: Yes Status: Acute Code(s): S72.141A - DISPLACED INTERTROCHANTERIC FRACTURE OF RIGHT FEMUR, INIT SNOMED Code(s): 596664675 Plan: Continue routine postop care and pain control. Continue anticoagulation with Eliquis. Toe-touch weightbearing to the right lower extremity Leave dressing in place for 7 days. Appreciate input from internal medicine. Anticipate discharge to ECF in the next 24-48 hours.
[2024-01-26 11:53] LABS: Glucose,Whole Blood 195 mg/dL (70-110)
--- NOTE | 2024-01-26 12:42 | P.PN ---
Subjective Progress Note Date: 01/26/24 patient is a 78-year-old lady with past medical history significant for hypertension, diabetes mellitus who presented to the ER because of a fall. Patient has been having issues with her right hip for a while. Patient has been having back pain and for which she received a steroid injection yesterday. Patient stated that her right leg gave out and she fell on her right side. There was no complaint of loss of consciousness. Denied any trauma to the head. Patient did not complain of any lightheadedness or dizziness prior to the fall. Because of this patient was brought to the ER Initial lab work done in the ER showed WBC 10.5, hemoglobin 13.3, platelet count 277, sodium 137 potassium 4.9, BUN 21, creatinine 1.52, glucose 167, calcium 9.8, bilirubin 0.7, AST 27, ALT 24 EKG done in the ER showed heart rate of 73, no ST segment elevation or depression seen, no T-wave inversions seen. Chest x-ray done in the ER showed no acute cardiopulmonary process X-ray right hip and pelvis showed proximal right femur fracture with varus deformity CT hip done showed intertrochanteric fracture right hip Patient admitted to internal medicine service 01/24. Patient seen and examined. N.p.o. going for surgery today 01/25. Patient seen and examined. Patient underwent close reduction and intramedullary nailing right hip. Working with PT and OT REVIEW OF SYSTEMS: CONSTITUTIONAL: No fever, no malaise,. CARDIOVASCULAR: No chest pain, no palpitations, no syncope. PULMONARY: No shortness of breath, no cough, GASTROINTESTINAL: No diarrhea, no nausea, no vomiting, no abdominal pain. NEUROLOGICAL: No headaches, no weakness, PHYSICAL EXAMINATION: GENERAL: The patient is alert and oriented x3, not in any acute distress. Well developed, well nourished. HEENT: Pupils are round and equally reacting to light. EOMI. No scleral icterus. No conjunctival pallor. Normocephalic, atraumatic. No pharyngeal erythema. No thyromegaly. CARDIOVASCULAR: S1 and S2 present. No murmurs, rubs, or gallops. PULMONARY: Chest is clear to auscultation, no wheezing or crackles. ABDOMEN: Soft, nontender, nondistended, normoactive bowel sounds. No palpable organomegaly. MUSCULOSKELETAL: Right hip incision seen EXTREMITIES: No cyanosis, clubbing, or pedal edema. NEUROLOGICAL: Gross neurological examination did not reveal any focal deficits. SKIN: No rashes. Assessment and plan Fall Right hip fracture Hypertension Diabetes mellitus Monitor vital signs Monitor CBC Monitor CMP Status post close reduction and intramedullary nailing right hip Continue pain management per orthopedics Continue DVT prophylaxis per orthopedics Currently n.p.o., going for surgery today Labs and medication were reviewed.. Continue same treatment. Continue with symptomatic treatment. Resume home medication. Monitor labs and vitals. DVT and GI prophylaxis. Further recommendations as per clinical course of the p atient Dictation was produced using [employer] dictation software. please excuse any grammatical, word or spelling errors. Objective - Vital Signs Vital signs: Vital Signs Temp 98.8 F 01/26/24 07:17 Pulse 90 01/26/24 09:51 Resp 17 01/26/24 07:17 BP 151/72 01/26/24 09:51 Pulse Ox 91 L 01/26/24 07:17 FiO2 Intake & Output 01/25/24 01/26/24 01/26/24 18:59 06:59 18:59 Intake Total 701 Output Total 1025 1700 Balance -324 -1700 Intake: IV 701 Output: Urine 875 1700 Estimated Blood Loss 150 Other: Voiding Method Indwelling Catheter Indwelling Catheter Indwelling Catheter - Labs CBC & Chem 7: 01/26/24 02:34 01/23/24 12:00 Labs: Abnormal Lab Results - Last 24 Hours (Table) 01/25/24 01/25/24 01/25/24 Range/Units 11:46 16:44 21:09 Hgb (12.0-15.0) g/dL MCHC (32.0-37.0) g/dL RDW (11.5-14.5) % Immature Gran # (0.00-0.04) X 10*3/uL Neutrophils # (1.80-7.70) X 10*3/uL Eosinophils # (0.04-0.35) X 10*3/uL POC Glucose (mg/dL) 166 H 206 H 245 H (70-110) mg/dL 01/26/24 01/26/24 Range/Units 02:34 05:44 Hgb 11.6 L (12.0-15.0) g/dL MCHC 30.9 L (32.0-37.0) g/dL RDW 14.8 H (11.5-14.5) % Immature Gran # 0.05 H (0.00-0.04) X 10*3/uL Neutrophils # 7.94 H (1.80-7.70) X 10*3/uL Eosinophils # 0 L (0.04-0.35) X 10*3/uL POC Glucose (mg/dL) 148 H (70-110) mg/dL
[2024-01-26 16:48] LABS: Glucose,Whole Blood 207 mg/dL (70-110)
[2024-01-26 21:50] LABS: Glucose,Whole Blood 207 mg/dL (70-110)
[2024-01-27 06:43] LABS: Glucose,Whole Blood 144 mg/dL (70-110)
[2024-01-27 11:13] LABS: Glucose,Whole Blood 152 mg/dL (70-110)
--- NOTE | 2024-01-27 12:46 | P.PN ---
Subjective Progress Note Date: 01/27/24 patient is a 78-year-old lady with past medical history significant for hypertension, diabetes mellitus who presented to the ER because of a fall. Patient has been having issues with her right hip for a while. Patient has been having back pain and for which she received a steroid injection yesterday. Patient stated that her right leg gave out and she fell on her right side. There was no complaint of loss of consciousness. Denied any trauma to the head. Patient did not complain of any lightheadedness or dizziness prior to the fall. Because of this patient was brought to the ER Initial lab work done in the ER showed WBC 10.5, hemoglobin 13.3, platelet count 277, sodium 137 potassium 4.9, BUN 21, creatinine 1.52, glucose 167, calcium 9.8, bilirubin 0.7, AST 27, ALT 24 EKG done in the ER showed heart rate of 73, no ST segment elevation or depression seen, no T-wave inversions seen. Chest x-ray done in the ER showed no acute cardiopulmonary process X-ray right hip and pelvis showed proximal right femur fracture with varus deformity CT hip done showed intertrochanteric fracture right hip Patient admitted to internal medicine service 01/24. Patient seen and examined. N.p.o. going for surgery today 01/25. Patient seen and examined. Patient underwent close reduction and intramedullary nailing right hip. Working with PT and OT. 01/26. Patient seen and examined. Patient is medically stable for discharge REVIEW OF SYSTEMS: CONSTITUTIONAL: No fever, no malaise,. CARDIOVASCULAR: No chest pain, no palpitations, no syncope. PULMONARY: No shortness of breath, no cough, GASTROINTESTINAL: No diarrhea, no nausea, no vomiting, no abdominal pain. NEUROLOGICAL: No headaches, no weakness, PHYSICAL EXAMINATION: GENERAL: The patient is alert and oriented x3, not in any acute distress. Well developed, well nourished. HEENT: Pupils are round and equally reacting to light. EOMI. No scleral icterus. No conjunctival pallor. Normocephalic, atraumatic. No pharyngeal erythema. No thyromegaly. CARDIOVASCULAR: S1 and S2 present. No murmurs, rubs, or gallops. PULMONARY: Chest is clear to auscultation, no wheezing or crackles. ABDOMEN: Soft, nontender, nondistended, normoactive bowel sounds. No palpable organomegaly. MUSCULOSKELETAL: Right hip incision seen EXTREMITIES: No cyanosis, clubbing, or pedal edema. NEUROLOGICAL: Gross neurological examination did not reveal any focal deficits. SKIN: No rashes. Assessment and plan Fall Right hip fracture Hypertension Diabetes mellitus Monitor vital signs Monitor CBC Monitor CMP Status post close reduction and intramedullary nailing right hip Continue pain management per orthopedics Continue DVT prophylaxis per orthopedics Labs and medication were reviewed.. Continue same treatment. Continue with symptomatic treatment. Resume home medication. Monitor labs and vitals. DVT and GI prophylaxis. Further recommendations as per clinical course of the patient Dictation was produced using [employer] dictation software. please excuse any grammatical, word or spelling errors. Objective - Vital Signs Vital signs: Vital Signs Temp 98.3 F 01/27/24 02:21 Pulse 83 01/27/24 02:21 Resp 17 01/26/24 14:29 BP 112/66 01/27/24 02:21 Pulse Ox 90 L 01/27/24 02:21 FiO2 Intake & Output 01/26/24 01/27/24 01/27/24 18:59 06:59 18:59 Output Total 900 Balance -900 Output: Urine 900 Uretheral (Ann) 800 Other: Voiding Method Indwelling Catheter Indwelling Catheter # Voids 1 3 - Labs CBC & Chem 7: 01/26/24 02:34 01/23/24 12:00 Labs: Abnormal Lab Results - Last 24 Hours (Table) 01/26/24 01/26/24 01/26/24 Range/Units 11:51 16:47 21:48 POC Glucose (mg/dL) 195 H 207 H 207 H (70-110) mg/dL 01/27/24 Range/Units 06:38 POC Glucose (mg/dL) 144 H (70-110) mg/dL
--- NOTE | 2024-01-27 13:09 | P.PN ---
Subjective Progress Note Date: 01/27/24 This is a 78-year-old female who is status post closed reduction and intramedullary nailing right hip. This is postoperative day #2 and patient is seen and evaluated at bedside today. Patient states that her pain is well- controlled and she denies any new complaints today. Objective - Vital Signs Vital signs: Vital Signs Temp 98.3 F 01/27/24 02:21 Pulse 83 01/27/24 08:52 Resp 17 01/27/24 08:52 BP 112/66 01/27/24 02:21 Pulse Ox 90 L 01/27/24 02:21 FiO2 Intake & Output 01/26/24 01/27/24 01/27/24 18:59 06:59 18:59 Output Total 900 Balance -900 Output: Urine 900 Uretheral (Ann) 800 Other: Voiding Method Indwelling Catheter Indwelling Catheter Bedside Commode # Voids 1 3 2 - Exam Vital signs are stable. Patient is in no acute distress and is alert and oriented 3. Calf is soft and nontender to palpation. Dressings are clean, dry, and intact. Patient has full foot and ankle motion without pain or difficulty. Sensation intact. Neurovascular status and circulatory status are intact. - Labs CBC & Chem 7: 01/26/24 02:34 01/23/24 12:00 Labs: Abnormal Lab Results - Last 24 Hours (Table) 01/26/24 01/26/24 01/27/24 Range/Units 16:47 21:48 06:38 POC Glucose (mg/dL) 207 H 207 H 144 H (70-110) mg/dL 01/27/24 Range/Units 11:12 POC Glucose (mg/dL) 152 H (70-110) mg/dL Assessment and Plan Assessment: Status post closed reduction and intramedullary nailing of the right femur. (1) Fall Current Visit: Yes Status: Acute Code(s): W19.XXXA - SNOMED Code(s): 5434477 (2) Fracture, intertrochanteric, right femur Current Visit: Yes Status: Acute Code(s): S72.141A - DISPLACED INTERTROCHANTERIC FRACTURE OF RIGHT FEMUR, INIT SNOMED Code(s): 040976110 Plan: Continue routine postop care and pain control. Continue anticoagulation with Eliquis. Toe-touch weightbearing to the right lower extremity. Leave dressing in place for 7 days. Appreciate input from internal medicine. Anticipate discharge to ECF in the next 24-48 hours.
[2024-01-27 16:31] LABS: Glucose,Whole Blood 223 mg/dL (70-110)
[2024-01-27 20:33] LABS: Glucose,Whole Blood 227 mg/dL (70-110)
[2024-01-28 05:52] LABS: Glucose,Whole Blood 152 mg/dL (70-110)
--- NOTE | 2024-01-28 10:11 | P.DS ---
Providers Date of admission: 01/23/24 15:49 Expected date of discharge: 01/28/24 Attending physician: Juventino Estrella Consults: 01/23/24 14:48 Consult Physician Urgent Consulting Provider: Mazin Mix Consult Reason/Comments: Medical management, surgical clearance Do you want consulting provider notified?: Yes Primary care physician: Arnold Quinn - Discharge Diagnosis(es) (1) Fall Current Visit: Yes Status: Acute (2) Fracture, intertrochanteric, right femur Current Visit: Yes Status: Acute Hospital Course: This is a 78-year-old female who sustained a fracture of her right hip after a fall on 01/23/2024. The patient presented for evaluation in the emergency room. After discussion and consideration patient elects to proceed with closed reduction and intramedullary nailing of the right hip. The patient is seen preoperatively by Dr. Estrella and medically cleared for surgery by internal medicine. Patient is admitted to [facility] on 01/23/2024 and closed reduction and intramedullary nailing of the right hip is performed on 01/25/2024. The procedure is performed without complication or sequelae. The patient is doing well postoperatively. Labs and vital signs are stable on day of discharge. On day of discharge patient's hip incision is healing well. There is minimal erythema. There is no drainage noted at this time. There is minimal soft tissue swelling to the hip and thigh. Patient has full foot and ankle motion without difficulty or pain. Calf is soft and nontender to palpation. Neurovascular status to the right lower extremity is intact. Patient is discharged to rehab in good condition. Please see med rec for accurate list of home medications. Plan - Discharge Summary Discharge Rx Participant: No New Discharge Prescriptions: New Apixaban [Eliquis] 2.5 mg PO BID 30 Days #60 tab HYDROcodone/APAP 7.5-325MG [Olin 7.5-325] 1 - 2 tab PO Q6H PRN #32 tab PRN Reason: Pain Sennosides [Senokot] 2 tab PO DAILY PRN #60 tablet PRN Reason: Constipation No Action Verapamil HCl [Calan Sr] 240 mg PO BID Triamterene-Hctz 37.5-25Mg [Dyazide 37.5-25 Capsule] 1 cap PO DAILY Fosinopril Sodium [Monopril] 20 mg PO DAILY Insulin Glargine,Hum.rec.anlog [Lantus Solostar Pen] 25 units SQ HS Calcium Carbonate [Calcium] 600 mg PO DAILY Atorvastatin [Lipitor] 20 mg PO HS Discharge Medication List Atorvastatin [Lipitor] 20 mg PO HS 01/23/24 [History] Calcium Carbonate [Calcium] 600 mg PO DAILY 01/23/24 [History] Fosinopril Sodium [Monopril] 20 mg PO DAILY 01/23/24 [History] Insulin Glargine,Hum.rec.anlog [Lantus Solostar Pen] 25 units SQ HS 01/23/24 [History] Triamterene-Hctz 37.5-25Mg [Dyazide 37.5-25 Capsule] 1 cap PO DAILY 01/23/24 [History] Verapamil HCl [Calan Sr] 240 mg PO BID 01/23/24 [History] Apixaban [Eliquis] 2.5 mg PO BID 30 Days #60 tab 01/26/24 [Rx] HYDROcodone/APAP 7.5-325MG [Olin 7.5-325] 1 - 2 tab PO Q6H PRN #32 tab 01/26/24 [Rx] Sennosides [Senokot] 2 tab PO DAILY PRN #60 tablet 01/26/24 [Rx] Follow up Appointment(s)/Referral(s): Keri Davison, [NON-STAFF] - As Needed Nonstaff,Physician [REFERRING] - 1-2 days Juventino Estrella DO [Doctor of Osteopathic Medicine] - 02/09/24 1:15 pm Activity/Diet/Wound Care/Special Instructions: Toe-touch weightbearing to the right lower extremity Leave dressing intact. Dressing may be removed by home care nurse or by patient in 7 days. Then change dressing twice daily until follow up. Olya to be removed in 10 to 14 days. May shower with initial dressing intact and after removal. If dressing become saturated, please remove. Please take Eliquis twice daily for 30 days to prevent blood clots. Recommend use of compression stockings daily until follow up to help prevent swelling and blood clots. May remove at night before sleeping. Please follow-up with [facility] in 2 weeks and call with any questions or concerns, . Discharge Disposition: TRANSFER TO SNF/F
[2024-01-28 10:47] LABS: Basophils # (A) 0.03 X 10*3/uL (0.00-0.10); Basophils % (A) 0.3 %; Eosinophils # (A) 0.11 X 10*3/uL (0.04-0.35); Eosinophils % (A) 1.1 %; HCT 36.5 % (37.2-46.3); HGB 11.4 g/dL (12.0-15.0); Lymphocytes # (A) 2.65 X 10*3/uL (0.90-5.00); Lymphocytes % (A) 26.2 %; MCH 27.3 pg (27.0-32.0); MCHC 31.2 g/dL (32.0-37.0); MCV 87.5 FL (80.0-97.0); Mean Platelet Volume 10.7 FL (9.5-12.2); Monocytes # (A) 0.79 X 10*3/uL (0.20-1.00); Monocytes % (A) 7.8 %; NRBC Per 100 WBC 0 X 10*3/uL (0.00-0.01); Neutrophils # (A) 6.46 X 10*3/uL (1.80-7.70); Neutrophils % (A) 63.8 %; Platelet Count 261 X 10*3/uL (140-440); RBC 4.17 X 10*6/uL (4.10-5.20); RDW 14.7 % (11.5-14.5); WBC 10.12 X 10*3/uL (4.50-10.00)
[2024-01-28 11:35] LABS: Glucose,Whole Blood 265 mg/dL (70-110)
--- NOTE | 2024-01-28 12:51 | P.PN ---
Subjective Progress Note Date: 01/28/24 patient is a 78-year-old lady with past medical history significant for hypertension, diabetes mellitus who presented to the ER because of a fall. Patient has been having issues with her right hip for a while. Patient has been having back pain and for which she received a steroid injection yesterday. Patient stated that her right leg gave out and she fell on her right side. There was no complaint of loss of consciousness. Denied any trauma to the head. Patient did not complain of any lightheadedness or dizziness prior to the fall. Because of this patient was brought to the ER Initial lab work done in the ER showed WBC 10.5, hemoglobin 13.3, platelet count 277, sodium 137 potassium 4.9, BUN 21, creatinine 1.52, glucose 167, calcium 9.8, bilirubin 0.7, AST 27, ALT 24 EKG done in the ER showed heart rate of 73, no ST segment elevation or depression seen, no T-wave inversions seen. Chest x-ray done in the ER showed no acute cardiopulmonary process X-ray right hip and pelvis showed proximal right femur fracture with varus deformity CT hip done showed intertrochanteric fracture right hip Patient admitted to internal medicine service 01/24. Patient seen and examined. N.p.o. going for surgery today 01/25. Patient seen and examined. Patient underwent close reduction and intramedullary nailing right hip. Working with PT and OT. 01/26. Patient seen and examined. Patient is medically stable for discharge 01/27. Patient seen and examined. Denies any acute issue overnight. Currently doing better. Patient is being discharged to rehab today REVIEW OF SYSTEMS: CONSTITUTIONAL: No fever, no malaise,. CARDIOVASCULAR: No chest pain, no palpitations, no syncope. PULMONARY: No shortness of breath, no cough, GASTROINTESTINAL: No diarrhea, no nausea, no vomiting, no abdominal pain. NEUROLOGICAL: No headaches, no weakness, PHYSICAL EXAMINATION: GENERAL: The patient is alert and oriented x3, not in any acute distress. Well developed, well nourished. HEENT: Pupils are round and equally reacting to light. EOMI. No scleral icterus. No conjunctival pallor. Normocephalic, atraumatic. No pharyngeal erythema. No thyromegaly. CARDIOVASCULAR: S1 and S2 present. No murmurs, rubs, or gallops. PULMONARY: Chest is clear to auscultation, no wheezing or crackles. ABDOMEN: Soft, nontender, nondistended, normoactive bowel sounds. No palpable organomegaly. MUSCULOSKELETAL: Right hip incision seen EXTREMITIES: No cyanosis, clubbing, or pedal edema. NEUROLOGICAL: Gross neurological examination did not reveal any focal deficits. SKIN: No rashes. Assessment and plan Fall Right hip fracture Hypertension Diabetes mellitus Monitor vital signs Monitor CBC Monitor CMP Status post close reduction and intramedullary nailing right hip Continue pain management per orthopedics Continue DVT prophylaxis per orthopedics Medically stable for discharge Labs and medication were reviewed.. Continue same treatment. Continue with symptomatic treatment. Resume home medication. Monitor labs and vitals. DVT and GI prophylaxis. Further recommendations as per clinical course of the patient Dictation was produced using [employer] dictation software. please excuse any grammatical, word or spelling errors. Objective - Vital Signs Vital signs: Vital Signs Temp 97.9 F 01/28/24 08:00 Pulse 92 01/28/24 08:44 Resp 16 01/28/24 08:44 BP 152/72 01/28/24 08:00 Pulse Ox 93 L 01/28/24 08:00 FiO2 Intake & Output 01/27/24 01/28/24 01/28/24 18:59 06:59 18:59 Intake Total 118 Balance 118 Intake: Oral 118 Other: Voiding Method Bedside Commode Bedside Commode Bedside Commode # Voids 2 1 - Labs CBC & Chem 7: 01/28/24 05:57 01/23/24 12:00 Labs: Abnormal Lab Results - Last 24 Hours (Table) 01/27/24 01/27/24 01/28/24 Range/Units 16:29 20:32 05:50 WBC (4.50-10.00) X 10*3/uL Hgb (12.0-15.0) g/dL Hct (37.2-46.3) % MCHC (32.0-37.0) g/dL RDW (11.5-14.5) % Immature Gran # (0.00-0.04) X 10*3/uL POC Glucose (mg/dL) 223 H 227 H 152 H (70-110) mg/dL 01/28/24 01/28/24 Range/Units 05:57 11:33 WBC 10.12 H (4.50-10.00) X 10*3/uL Hgb 11.4 L (12.0-15.0) g/dL Hct 36.5 L (37.2-46.3) % MCHC 31.2 L (32.0-37.0) g/dL RDW 14.7 H (11.5-14.5) % Immature Gran # 0.08 H (0.00-0.04) X 10*3/uL POC Glucose (mg/dL) 265 H (70-110) mg/dL
[2024-01-28 14:47] VITALS: BP 147/73; PULSE 75; RESP 18; TEMP 97.3
[2024-01-28 16:31] LABS: Glucose,Whole Blood 172 mg/dL (70-110)
== END 2024-01-28 18:56 | DRG 482 ==
LOC: SUPCPDRO 11:29 → EC 11:29 → 4SSUR 15:49
PROVIDERS: ADMIT Orthopaedic Surgery; ATTEND Orthopaedic Surgery
PROC: 3E0T3BZ Introduction of Anesthetic Agent into Peripheral Nerves and Plexi, Percutaneous Approach (ICD-10-PCS; 2024-01-25)
PROC: 0QS636Z Reposition Right Upper Femur with Intramedullary Internal Fixation Device, Percutaneous Approach (ICD-10-PCS; principal; 2024-01-25 08:00)
DX: S72.141A Displaced intertrochanteric fracture of right femur, initial encounter for closed fracture (principal); E11.9 Type 2 diabetes mellitus without complications; I10 Essential (primary) hypertension; W18.30XA Fall on same level, unspecified, initial encounter; Z96.651 Presence of right artificial knee joint; Z79.899 Other long term (current) drug therapy; Z79.4 Long term (current) use of insulin; Z90.710 Acquired absence of both cervix and uterus
CPT/HCPCS: 36415; 71045; 73501; 73502; 80053; 85025; 85610; 85730; 93005; 96361; 96374; 96376; 99285